=== PATIENT | male | born 1950 | race Caucasian/White ===

== ENCOUNTER 2016-10-29 10:45 | Inpatient (IN) | payer MEDICARE ==
[~2016-10-29] VITALS: Ht 177.8 cm; Wt 100.0 kg
[~2016-10-29 10:45] MED LIST: AZOR 5-40 MG TA1 TAB PO; BAYER CHEWABLE81 MG PO; BRILINTA90 MG PO; CELEXA20 MG PO; HYDROCODONE-APA1 TAB PO; PRILOSEC10 MG PO
[2016-10-29 11:40] VITALS: Ht 177.8 cm; Wt 100.0 kg
[2016-10-29] MEDS ORDERED: EDARBI40 MG PO (11:48)
[2016-10-30 08:00] VITALS: BP 151/71
[2016-10-30] MEDS ORDERED: LIPITOR20 MG PO ×2 (14:16→14:33)
[2016-10-30] MEDS ORDERED: PLAVIX75 MG PO ×2 (14:16→14:33)
== END 2016-10-30 15:46 | disposition home or self-care (01) | DRG 247 ==
LOC: D.M2 10:45
PROVIDERS: Internal Medicine Cardiovascular Disease; ADMIT Emergency Medicine
PROC: B2111ZZ Fluoroscopy of Multiple Coronary Arteries using Low Osmolar Contrast (ICD-10-PCS; 2016-10-30)
PROC: B2151ZZ Fluoroscopy of Left Heart using Low Osmolar Contrast (ICD-10-PCS; 2016-10-30)
PROC: 027135Z Dilation of Coronary Artery, Two Arteries with Two Drug-eluting Intraluminal Devices, Percutaneous Approach (ICD-10-PCS; principal; 2016-10-30 11:00)
PROC: 4A023N7 Measurement of Cardiac Sampling and Pressure, Left Heart, Percutaneous Approach (ICD-10-PCS; 2016-10-30 11:00)
DX: I25.10 Atherosclerotic heart disease of native coronary artery without angina pectoris (principal); T82.855A Stenosis of coronary artery stent, initial encounter; Y83.8 Other surgical procedures as the cause of abnormal reaction of the patient, or of later complication, without mention of misadventure at the time of the procedure; E11.9 Type 2 diabetes mellitus without complications; I10 Essential (primary) hypertension; F41.9 Anxiety disorder, unspecified; F32.9 Major depressive disorder, single episode, unspecified; Z72.0 Tobacco use

== ENCOUNTER → 2016-11-26 16:45 | Outpatient (CLI) | payer MEDICARE ==
[2016-10-29 11:40] VITALS: BMI 31.6
[~2016-11-26 16:45] MED LIST changes: +EDARBI40 MG PO; +LIPITOR20 MG PO; +PLAVIX75 MG PO
[2016-11-26 19:52] LABS: LDL-HDL RATIO 2.5 ratio (1.5-3.5)
== END | disposition home or self-care (01) ==
LOC: D.LABREF 16:45
PROVIDERS: Internal Medicine Cardiovascular Disease
DX: E78.5 Hyperlipidemia, unspecified (principal)

== ENCOUNTER 2017-01-30 01:58 | Emergency (ER) | payer MEDICARE ==
[2016-10-29 11:40] VITALS: BMI 31.6
== END 2017-01-30 03:15 | disposition home or self-care (01) ==
LOC: D.ER 01:58
DX: S20.212A Contusion of left front wall of thorax, initial encounter (principal); W01.0XXA Fall on same level from slipping, tripping and stumbling without subsequent striking against object, initial encounter; Y93.89 Activity, other specified; Y92.89 Other specified places as the place of occurrence of the external cause; S22.42XA Multiple fractures of ribs, left side, initial encounter for closed fracture; K21.9 Gastro-esophageal reflux disease without esophagitis; I10 Essential (primary) hypertension

== ENCOUNTER 2017-05-31 10:33 | Emergency (ER) | payer MEDICARE ==
[2016-10-29 11:40] VITALS: BMI 31.6
[2017-05-31 13:48] LABS: BASOPHILS 0.5 % (0-2); EOSINOPHILS 0.9 % (0-7); HEMATOCRIT 42.7 % (42.0-54.0); HEMOGLOBIN 14.1 g/dL (13.5-17.5); IMMATURE GRANULOCYTES 0.4 % (0-5); LYMPHOCYTES 14.8 % (15-50); MCH 29.4 pg (26.0-34.0); MCV 89.1 fL (80.0-100.0); MEAN PLATELET VOLUME 9.7 fL (7.4-10.4); MONOCYTES 7.5 % (2-11); NEUTROPHILS 75.9 % (40-80); RBC 4.79 10x6/uL (4.20-6.10); RDW 12.7 % (11.5-14.5); WBC 8.4 10x3/uL (4.8-10.8)
[2017-05-31 13:49] LABS: PLATELET COUNT 193 10x3/uL (130-400)
[2017-05-31 14:45] LABS: ALBUMIN 3.7 g/dL (3.4-5.0); ALKALINE PHOSPHATASE 60 U/L (46-116); ALT (SGPT) 22 U/L (10-68); CALC OSMOLALITY 274 mosm/kg (275-300); CALCIUM 8.7 mg/dL (8.5-10.1); CARBON DIOXIDE 24.7 mmol/L (21.0-32.0); CHLORIDE - SERUM 105 mmol/L (98-107); CREATININE - SERUM 0.9 mg/dL (0.6-1.3); GLUCOSE 92 mg/dL (74-106); POTASSIUM - SERUM 3.8 mmol/L (3.5-5.1); PROTEIN - SERUM 7.6 g/dL (6.4-8.2); SODIUM 138 mmol/L (136-145); UREA NITROGEN 10 mg/dL (7-18); eGFR NON AFRICAN AMERICAN 89 mL/min (90-120)
[2017-05-31 14:51] LABS: APPEARANCE CLEAR (CLEAR); COLOR YELLOW (YELLOW)
[2017-05-31 14:52] LABS: BILIRUBIN NEGATIVE (NEGATIVE); GLUCOSE NEGATIVE (NEGATIVE); KETONE NEGATIVE (NEGATIVE); NITRITE NEGATIVE (NEGATIVE); PROTEIN NEGATIVE (NEGATIVE); UROBILINOGEN NORMAL (NORMAL)
[2017-05-31 14:54] LABS: PRO BNP 147 pg/mL (0-125)
[2017-05-31 14:57] LABS: TROPONIN-I < 0.017 ng/mL (0.000-0.060)
== END 2017-05-31 15:30 | disposition home or self-care (01) ==
LOC: D.ER 10:33
PROVIDERS: Emergency Medicine
DX: I10 Essential (primary) hypertension (principal); K21.9 Gastro-esophageal reflux disease without esophagitis

== ENCOUNTER 2017-10-09 18:16 | Emergency (ER) | payer MEDICARE ==
[~2017-10-09] VITALS: Ht 177.8 cm; Wt 102.3 kg
[2017-10-09 18:40] VITALS: BP 215/96; Ht 177.8 cm; Wt 102.3 kg
== END 2017-10-09 19:37 | disposition left against medical advice (07) ==
LOC: D.ER 18:16
DX: I10 Essential (primary) hypertension (principal)

== ENCOUNTER 2018-09-02 00:40 | Emergency (ER) | payer MEDICARE ==
[~2018-09-02] VITALS: Ht 177.8 cm; Wt 106.8 kg
[2018-09-02 00:44] VITALS: Ht 177.8 cm; Wt 106.8 kg
[2018-09-02] MEDS ORDERED: TOPROL XL50 MG PO (00:46)
[2018-09-02 02:08] VITALS: BP 130/63
[2018-09-02] MEDS ORDERED: EDARBI40 MG PO (21:25)
[2018-09-03] MEDS ORDERED: HYDROCHLOROTHIA25 MG PO (14:07)
[2018-09-03] MEDS ORDERED: POTASSIUM CHLO10 ME1 PO (14:08)
== END 2018-09-02 02:08 | disposition home or self-care (01) ==
LOC: D.ER 00:40
DX: I10 Essential (primary) hypertension (principal)

== ENCOUNTER → 2018-09-02 06:56 | Outpatient (CLI) | payer MEDICARE ==
[2018-09-02 00:44] VITALS: BMI 33.7
[~2018-09-02 06:56] MED LIST changes: +HYDROCHLOROTHIA25 MG PO; +POTASSIUM CHLO10 ME1 PO; +TOPROL XL50 MG PO
== END | disposition home or self-care (01) ==
LOC: D.US 06:56 → D.HCCARDIO 09:00
PROVIDERS: ATTEND Internal Medicine Cardiovascular Disease
DX: R42 Dizziness and giddiness (principal)

== ENCOUNTER 2018-09-02 15:48 | Inpatient (IN) | payer MEDICARE ==
[~2018-09-02] VITALS: Ht 177.8 cm; Wt 109.1 kg
--- NOTE | ~2018-09-02 | DS ---
PATIENT:KEVIN GONZALEZ JR :46 MEDICAL RECORD: [id number] DISCHARGE SUMMARY ADMISSION DATE: 09/02/18 DISCHARGE DATE: 09/03/18 DATE OF ADMISSION: 09/02/2018 DATE OF DISCHARGE: 09/03/2018 IMPRESSION: 1. Acute coronary syndrome. 2. Hypertension. 3. Hyperlipidemia. BRIEF HISTORY AND HOSPITAL COURSE: Admitted with hypertension and recurrent angina, found to have restenotic right coronary, underwent a PCI of this vessel. He did well, was discharged home with addition of HCTZ and potassium supplementation to his medical regimen as per ____. See him back in the office for scheduled followup. TRANSINT:[id number] Voice Confirmation ID: [id number] DOCUMENT ID: [id number] JOELLE PINEDA MD CC: [id number] DICTATION DATE: 09/03/189 DIRECTOR OF CLINICAL SERVICES: 09/04/18 0250 DIS IN 09/03/18 [place] [id number] [place] [id number]
--- NOTE | ~2018-09-02 | OP ---
PATIENT NAME: KEVIN GONZALEZ JR MEDICAL RECORD: [id number] :46 LOCATION:D.M2 D.2115 ADMISSION DATE:09/02/18 SURGEON: JOELLE PINEDA MD DATE OF OPERATION: 09/03/2018 PROCEDURE: Left heart cath, selective coronary angiography plus PTCA of the restenotic stent, right femoral artery approach. CATHETERS: A 5-Cymro, 5/4 left and right Latia, 5/4 pig. The procedure was well tolerated. The patient was returned to the smith. Sheath removed. ExoSeal device was placed. FINDINGS: Left ventriculography in 30-degree SAMUEL normal wall motion and normal systolic function. CORONARY ANATOMY: LEFT MAIN: Left main is free of disease. LAD: Free of disease in the diagonal system. CIRCUMFLEX: Free of disease in the marginal system. RIGHT CORONARY ARTERY: The distal PDA after split of the PL and PD is totally occluded. Fills from left to right collaterals. The proximal stent placed has 80% restenosis and supplies a fairly large arch of PL branch. PLAN: PTCA of the restenotic stent. DESCRIPTION: A 5-Cymro sheath was exchanged for a 6-Cymro sheath. A hockey stick guide catheter provided good guide catheter support followed by a 300 cm Whisper wire was placed across the restenotic 80% stenosed stent down this portion of vessel. Stent was a 3.5 x 20 mm for oversizing purposes inflated up to 10 atmospheres for 45 seconds. Final angiography showed excellent resolution of 80% stenosis to no significant residual. GAURAV flow was 3 throughout the procedure. Sheath was closed with Exoseal device. Heparin was used during the case. IMPRESSION: Successful PTCA of the right coronary. We will add HCTZ as well as potassium supplementation to his medical regimen. May have residual angina from his totally occluded PD although this should improve blood pressure control, etc. TRANSINT:[id number] Voice Confirmation ID: [id number] DOCUMENT ID: [id number] JOELLE PINEDA MD CC: [id number] DICTATION DATE: 09/03/181107 LICENSED PHYSICAL THERAPIST ASSISTANT: 09/03/182117 DIS IN 09/03/18 [facility] [address] [place] [address]
--- NOTE | ~2018-09-02 | HEMODYNAMI ---
PATIENT:KEVIN GONZALEZ JR MEDICAL RECORD: [id number] : 46 LOCATION:[facility] D.2116 [facility]# [id number] ADMISSION DATE: 09/02/18 Generatedon:09/03/201811:07 Patient name: KEVIN GONZALEZ Patient #: [id number] SSN: : Date of study: 09/03/2018 Page: Of Hemodynamic Procedure Report Patient Data Patient Demographics Procedure consent was obtained First Name: KEVIN Gender: Male Last Name: CARLOS Suffix: Jr Ruiz Initial: Jessica : 1950 Patient #: [id number] Age: 67 year(s) Race: Additional ID: [id number] Contact details Address: [place] [address] State: [place] City: [place] Zip code: [address] Past Medical History Allergies Allergen Reaction Date Comments Reported Sulfa drugs 10/30/2016 Other allergy 10/30/2016 Reglan Other allergy 09/03/2018 Sulfa, Reglan Admission Admission Data Admission Date: 09/02/2018 Admission Time: 19:17 Arrival Date: 09/03/2018 Arrival Time: 0:00 Admit Source: Emergency Insurance Payor: Medicare department [facility] #: [id number] Room #: D.2116 Height (in.): 69.69 BSA: 2.25 (m2) Height (cm.): 177 BMI: 34.79 (kg/m2) Weight (lbs.): 240.31 Weight (kg.): 109 Medications upon Admission Medications Dosage Times Administered Last Remarks per Delivery Day Date and Time Beta Panfilo (any) Clopidogrel Current Diagnosis Diagnosis Description Unstable angina Lab Results Lab Result Date: 09/03/2018 Lab Result Time: 5:15 Biochemistry Name Units Result Min Max BUN mg/dl 9 --(*---)-- 7 18 Creatinine mg/dl 0.8 --(-*--)-- 0.6 1.3 CBC Name Units Result Min Max Hematocrit % 40.3 -*(----)-- 42 54 Hemoglobin g/dl 13.2 -*(----)-- 13.5 17.5 Procedure Procedure Types Cath Procedure Diagnostic Procedure [facility] w/Coronaries PCI Procedure PTCA PTCA Initial Procedure Description Procedure Date Procedure Date: 09/03/2018 Procedure Start Time: 10:44 Procedure End Time: 11:03 Procedure Staff Name Function Mathieu Lund RN Nurse Nader Davis MD Performing Physician Alexander Lam RT Scrub Vivi Schroeder RT Monitor Indication Chest heaviness and pressure Procedure Data Cath Procedure Fluoroscopy Diagnostic fluoroscopy Total fluoroscopy Time: 3.9 time: 3.9 min min Diagnostic fluoroscopy Total fluoroscopy dose: 500 dose: 500 mGy mGy Contrast Material Contrast Material Type Amount (ml) Isovue 300 89 Entry Location Entry Primary Successful Side Size Upsize Upsize Entry Closure Succes sful Closure Location (Fr) 1 (Fr) 2 (Fr) Remarks Device Remarks Femoral Right 5 Fr 6 Fr Exoseal artery Short Estimated blood loss: 10 ml Diagnostic catheters Device Type Used For End Catheter Placement MULTIPACK JL 4.0 5Fr Procedure catheter MULTIPACK 3DRC 5Fr Procedure catheter MULTIPACK Pigtail 5 Fr Procedure catheter Procedure Complications No complications Procedure Medications Medication Administration Route Dosage Oxygen etCO2 Nasal cannula 2 l/min Lidocaine 2% added to field 20 Heparin Flush Bag added to field 2 bags (1000units/500ml NS) 0.9% NaCl I.V. 100 ml/hr Versed I.V. 2 mg Fentanyl I.V. 100 mcg Versed I.V. 2 mg Fentanyl I.V. 100 mcg Heparin Bolus I.V. 4000 units Versed I.V. 2 mg Versed I.V. 2 mg Zofran I.V. 4 mg Plavix P.O. 75 mg Hemodynamics Rest BSA: 2.25 (m2) HGB: 13.2 (g/dl) O2 Consumption: Estimated: 298.75 (ml/min) O2 Co nsumption indexed: Estimated:132.78 (ml/min/m) Heart Rate: 115 (bpm) Pressure Samples Time Site Value (mmHg) Purpose Heart Use Rate(bpm) 10:49 LV 143/6,7 Snapshot 117 10:49 LV 137/7,9 Snapshot 117 Snapshots Pre Cath Intra NCS Post Cath Vital Signs Time Heart Resp SPO2 etCO2 NIBP (mmHg) Rhythm Pain Sedation Rate (ipm) (%) (mmHg) Status Level (bpm) 10:35:52 113 11 96 18.8 154/105(131) ST 0 (11) 10(A) , No pain 10:40:18 113 15 95 43 171/98(148) ST 0 (11) 10(A) , No pain 10:46:41 [address] 0 (11) 10(A) Exceeded , No pain 10:51:40 114 11 94 40.8 125/84(0) ST 0 (11) 10(A) , No pain 10:53:02 [address] 0 (11) 10(A) Exceeded , No pain 10:55:19 115 13 96 40.8 132/88(103) ST 0 (11) 10(A) , No pain 10:59:43 117 15 95 37.7 126/83(117) ST 0 (11) 10(A) , No pain 11:04:02 114 15 96 27.9 130/90(115) ST 0 (11) 10(A) , No pain Medications Time Medication Route Dose Verified Delivered Reason Notes Effectiveness by by 10:34:40 Oxygen etCO2 2 Nader Vinayakie used for Nasal l/min St Miguel Ángel Lund RN procedure cannula 10:34:48 Lidocaine 2% added 20ml Nader Nader for local to vial [facility] anesthetic field MD BISHOP 10:34:55 Heparin Flush added 2 Nader Nader used for Bag to bags [facility] procedure (1000units/500ml field MD BISHOP NS) 10:35:03 0.9% NaCl I.V. 100 Nader Murdokc Per physician ml/hr St Miguel Ángel Lund RN, MD 10:35:16 Zofran I.V. 4 mg Nader Buffie Per physician pt st ates [facility] Miguel Ángel Lund RN has been MD nauseated. 10:40:28 Versed I.V. 2 mg Nader Buffie for sedation St Miguel Ángel Lund RN, MD 10:40:35 Fentanyl I.V. 100 Nader Buffie for sedation mcg [facility] Miguel Ángel Lund RN, MD 10:45:46 Versed I.V. 2 mg Nader Buffie for sedation St Miguel Ángel Lund RN, MD 10:45:49 Fentanyl I.V. 100 Nader Vinayakie for sedation mcg [facility] Miguel Ángel Lund RN, MD 10:48:09 Versed I.V. 2 mg Nader Murdock for sedation St Miguel Ángel Lund RN, MD 10:51:02 Heparin Bolus I.V. 4000 Nader Murdock for verif ied units St Miguel Ángel Lund RN anticoagulation with dr MD loredo 10:56:34 Versed I.V. 2 mg Nader Murdock for sedation St Miguel Ángel Lund RN, MD 11:03:07 Plavix P.O. 75 mg [address] for St Miguel Ángel Lund RN antiplatelet therapy Procedure Log Time Note 9:59:27 Informed consent obtained and on chart 10:08:13 ACC Patient presents with Unstable Angina CCS Anginal Class 3--Marked limitation of physical activity, angina occurs with ordinary activity.. 10:08:33 ACCPatient has been prescribed/administered the following anti-anginal medication within the last 2 weeks: Beta Panfilo 10:08:56 Patient Weight : 240.31 lbs 10:08:59 Patient Height : 69.69 inches 10:09:17 Insurance Payor : Medicare 10:09:31 Admit Source: Emergency department 10:09:33 Arrival Date: 09/03/2018 12:00:00 AM 10:09:47 Current Diagnosis : Unstable angina 10:10:35 Lab Result : Hemoglobin 13.2 g/dl 10:10:35 Lab Result : Hematocrit 40.3 % 10:10:35 Lab Result : BUN 9 mg/dl 10:10:35 Lab Result : Creatinine 0.8 mg/dl 10:11:01 Indication : Chest heaviness and pressure 10:11:28 Diagnostic Cath Status : Urgent 10:11:39 Procedure Status Urgent Heart Cath (IP). 10:11:40 Mathieu Lund RN sent for patient. Start room use. 10:11:43 Time tracking: Call back (After hours or weekends) 10:11:46 Plan of Care:Hemodynamics will remain stable., Cardiac rhythm will remain stable., Comfort level will be maintained., Respiratory function will remain adequate., Patient/ family verbilizes understanding of procedure., Procedure tolerated without complication., Recovers from procedure without complications.. 10:11:56 H&P Date Dictated: 09/02/2018 Within 30 days and on chart.. 10:11:59 Lab results completed and on chart. 10:17:23 Patient received from Med II to [facility] 1 Alert and oriented. Tansferred to table in Supine position. 10:17:25 Warm blankets applied, and manav hugger turned on for patient comfort. 10:17:26 ECG and BP/O2 sat monitors applied to patient. 10::26 Correct patient and procedure confirmed by team. 10:17:35 Pre-procedure instructions explained to patient. 10:17:36 Pre-op teaching completed and patient verbalized understanding. 10:17:37 Family in waiting room. 10:17:40 Patient NPO since Breakfast. ::26 Vital chart was started 10:34:40 Oxygen 2 l/min etCO2 Nasal cannula was administered by Mathieu Lund RN; used for procedure; 10:34:48 Lidocaine 2% 20ml vial added to field was administered by Nader Davis MD; for local anesthetic; 10:34:55 Heparin Flush Bag (1000units/500ml NS) 2 bags added to field was administered by Nader Davis MD; used for procedure; 10:35:03 0.9% NaCl 100 ml/hr I.V. was administered by Mathieu Lund RN; Per physician; 10:35:16 Zofran 4 mg I.V. was administered by Mathieu Lund RN; Per physician; pt states has been nauseated. 10:35:31 Baseline sample Acquired. 10:35:36 Rhythm: sinus rhythm 10:35:39 Full Disclosure recording started 10:37:15 Patient allergic to Other allergySulfa, Reglan 10:37:29 Is the patient allergic to Iodine/contrast media? No. 10:37:57 Was the patient premedicated? Yes 10:38:04 Is patient on blood thinner?Yes 10:38:07 ACC The patient was administered the following blood thiners within the last 24 hours: ACCPlavix 10:38:12 Patient diabetic? No. 10:38:18 Snore? Yes 10:38:20 Sleep apnea? No 10:38:26 Dentures? Yes in tight 10:38:38 Pre procedure: right dorsailis pedis pulse 1+ Palpable, but thready & weak; easily obliterated 10:38:47 Patient pain scale 1/10 pressure. 10:38:58 IV patent on arrival in right forearm with 0.9% NaCl at [facility]. 10:39:47 Right groin area was prepped with chlora-prep and draped in sterile fashion 10:39:49 Alarms reviewed by R. N. 10:39:50 Sharps counted by scrub and verified by R.N. 10:39:54 Physician paged 10:39:55 Physician arrived 10:39:56 Final Timeout: patient, procedure, and site verified with staff and physician. All members of the team are in agreement. 10:39:56 --------ALL STOP TIME OUT------ 10:39:59 Right groin site verified by team. 10:40:08 Fire Safety Assessment: A--An alcohol-based skin anteseptic being used preoperatively., C--Open oxygen or nitrous oxide is being used., D--An ESU, laser, or fiber-optic light is being used. 10:40:28 Versed 2 mg I.V. was administered by Mathieu Lund RN; for sedation; 10:40:35 Physical assessment completed. ASA score P 3 - A patient with severe systemic disease as per Nader Davis MD. 10:40:35 Fentanyl 100 mcg I.V. was administered by Mathieu Lund RN; for sedation; 10:41:46 2) 60-89 Mildly reduced kidney function, and other findings (as for stage 1) point to kidney disease. 10:42:13 Maximum allowable contrast dose (3.7 X eGFR X 0.75)219 ml. 10:42:18 Sedation plan: IV Moderate Sedation Medication:Versed, Fentanyl 10:43:48 Use device set Femoral Dx 10:43:50 Bag Decanter () opened to sterile field. 10:43:50 ACIST Syringe (25506) opened to sterile field. 10:43:51 Medline Cath Pack ([id number]) opened to sterile field. 10:43:52 ACIST Manifold (46711) opened to sterile field. 10:43:52 ACIST Hand Control (49283) opened to sterile field. 10:43:54 DIAGNOSTIC Multipack 5Fr catheter set (OV4807) opened to sterile field. 10:43:57 SHEATH 5FR [place] (NXH083) opened to sterile field. 10:44:02 EMERALD Guide Wire (741-660) opened to sterile field. 10:44:05 Procedure started. 10:44:24 Local anesthetic to right femoral artery with Lidocaine 2% by Nader Davis MD.INITIAL ACCESS ONLY 10:44:34 A 5 Fr sheath was inserted into the Right Femoral artery 10:44:44 J wire advanced. 10:44:55 A MULTIPACK JL 4.0 5Fr catheter was advanced over the wire and used for Procedure. 10:44:57 LCA angiography performed. 10:45:46 Versed 2 mg I.V. was administered by Mathieu Lund RN; for sedation; 10:45:49 Fentanyl 100 mcg I.V. was administered by Mathieu Lund RN; for sedation; 10:47:22 Catheter removed. 10:47:29 A MULTIPACK 3DRC 5Fr catheter was advanced over the wire and used for Procedure. 10:48:09 Versed 2 mg I.V. was administered by Mathieu Lund RN; for sedation; 10:49:51 RCA angiography performed. 10:49:53 Catheter removed. 10:49:59 A MULTIPACK Pigtail 5 Fr catheter was advanced over the wire and used for Procedure. 10:50:13 EF : 55 % 10:50:16 Catheter removed. 10:50:49 Pre PCI Site: [place] pRCA has 80% stenosis. 10:51:02 Heparin Bolus 4000 units I.V. was administered by Mathieu Lund RN; for anticoagulation; verified with dr loredo 10:51:09 Sheath upsized to a 6 Fr Short. 10:51:37 GUIDE 6FR HS I catheter (LA6HSI) opened to sterile field. 10:52:04 INFLATOR Merit BasixCompak (NY3477) opened to sterile field. 10:52:42 WHISPER 300cm guide wire ([id number]) opened to sterile field. 10:52:43 SHEATH 6FR [place] (FFG020) opened to sterile field. 10:52:55 ACC Pre-intervention GAURAV Flow is 3. 10:53:06 6 Fr HS1 guide catheter was inserted over the wire 10:53:13 Whisper wire advanced. 10:54:25 Wire advanced across lesion. 10:56:00 ACT drawn and resulted at 267 seconds. (normal therapeutic range 180-240 seconds). 10:56:09 Inflate balloon Inflation number: 1 A EMERGE OTW 3.5 x 20 balloon ([id number]) was prepped and advanced across the Prox RCA 80, then inflated to 8 ALEXANDRO for 0:39 (min:sec) . 10:56:34 Versed 2 mg I.V. was administered by Mathieu Lund RN; for sedation; :57:17 EXOSEAL 6Fr (EX600) opened to sterile field. 10:57:25 Wire removed. 10:57:25 Balloon removed over the wire. 10:57:28 Guide catheter removed. 11:00:15 Sheath removed intact; hemostasis achieved with Exoseal to the Right Femoral artery. 11:00:17 Procedure ended.(Physican Out) 11:00:32 Fluoroscopy time 03.90 minutes. 11:00:36 Fluoroscopy dose: 500 mGy 11:00:36 Flurop Dose total: 500 11:00:54 Contrast amount:Isovue 300 89ml. 11:01:13 Dose Area Product 91828 mGy/cm. 11:01:18 Cumulative Air Kerma 500mGy. 11:01:26 Maximum allowable dose exceeded? No. 11::28 Sharps counted by scrub and verified by R.N. 11:01:32 Insertion/operative site no bleeding no hematoma. 11:01:38 Post right femoral artery:stable 11:01:42 Post Procedure Pulses reassessed and unchanged 11:01:46 Post procedure rhythm: unchanged. 11:01:49 Estimated blood loss: 10 ml 11:01:52 Post procedure instruction explained to patient.Patient verbalizes understanding. 11:02:48 Procedure type changed to Cath procedure, Diagnostic procedure, LHC, LHC w/Coronaries, PCI procedure, PTCA, PTCA Initial 11:03:07 Plavix 75 mg P.O. was administered by Mathieu Lund RN; for antiplatelet therapy; 11:03:31 Procedure and supply charges have been captured, reviewed, submitted and are correct. 11:03:36 Procedure Complication : No complications 11:03:38 Vital chart was stopped 11:03:39 See physician's report for complete and final results. 11:03:44 Patient transfered to [facility] with Bed. 11:03:47 Full Disclosure recording stopped 11:03:47 Procedure ended. 11:03:53 End room use (Document Last) Intervention Summary Intervention Notes Time ActionType Lesion and Equipment Action# Pressure Duration Attributes Used 10:56:09 Inflate Prox RCA EMERGE OTW 1 8 00:39 balloon 3.5 x 20 balloon ([id number]) Device Usage Item Name Manufacture Quantity Catalog Number Hospital Part Current Min imal Lot# / Charge Number Stock Stock Serial# Code ACIST Acist 1 95174 791776 559132 161932 20 Syringe Medical (10481) Systems Inc Bag Decanter Microtek 1 2001S 935957 33341 395933 5 () Medical Inc. Medline Cath Medline 1 [id number] 861536 60334 761476 5 Pack ([id number]) ACIST Hand Acist 1 96743 634519 546971 533910 5 Control Medical (69255) Systems Inc ACIST Acist 1 03594 908147 991608 097870 5 Manifold Medical (61371) Systems Inc DIAGNOSTIC Cardinal 1 OP1569 497925 81546 592630 30 Multipack Health 5Fr catheter set (LY1685) SHEATH 5FR Terumo 1 KCC682 551166 971391 602671 5 [place] (RHW903) EMERALD Cardinal 1 502-455 002478 329452 637255 5 Guide Wire [facility] (502455) MULTIPACK JL Cardinal 1 896143 5 4.0 5Fr Health catheter MULTIPACK Cardinal 1 992052 5 3DRC 5Fr Health catheter MULTIPACK Cardinal 1 708402 5 Pigtail 5 Fr Health catheter GUIDE 6FR HS Medtronic 1 LA6HSI 210086 99959 092360 1 I catheter (LA6HSI) INFLATOR [facility] 1 QL4439 313107 693394 745497 15 [facility] Medical BasixCompak (ES0569) WHISPER [place] 1 [id number] 522359 721527 422321 5 300cm guide Vascular wire ([id number]) SHEATH 6FR Terumo 1 TVX233 777816 045107 260372 40 [place] (XBT255) EMERGE OTW [place] 1 [id number] 737098 202768 694241 5 [id number] 3.5 x 20 Scientific balloon ([id number]) EXOSEAL 6Fr Cardinal 1 EX600 416408 038341 410110 10 (EX600) Health Signature Audit [place] Stage Time Signature Unsigned Intra-Procedure 09/03/2018 Alexander Lam 11:07:37 AM RT(R) Signatures Nurse : Mathieu Lund RN Signature : Date : Time : Performing Physician : Signature : Nader Ryan MD Date : Time : Monitor : Vivi Alexandre Signature : RT Date : Time : [address] [place] [address]
--- NOTE | ~2018-09-02 | HP ---
PATIENT: KEVIN GONZALEZ JR MEDICAL RECORD: [id number] ACCOUNT: [id number] LOCATION:[address] : 46 ADMISSION DATE: 09/02/18 PCP: ANTHONY ALLEN MD HISTORY AND PHYSICAL EXAMINATION HISTORY OF PRESENT ILLNESS: A 67-year-old gentleman with known history of coronary artery disease, status post intervention of the right. Had last intervention approximately 20 months ago, presents to the office with a progressive angina, underwent nuclear stress testing yesterday, which showed some changes inferiorly with mild reversibility, presented to the ER with rest symptomology yesterday, is being admitted for diagnostic angiography. PAST MEDICAL HISTORY: Includes: 1. History of hypertension. 2. Coronary artery disease as described above. 3. Dyslipidemia. ALLERGIES: SULFA, REGLAN. MEDICATIONS: Typically include Plavix 75 every day, Edarbi 80 every day, metoprolol 50 b.i.d., aspirin 81 every day, Celexa 20 every day. SOCIAL HISTORY: Nonsmoker, nondrinker. Easily takes care of all his ADLs. REVIEW OF SYSTEMS: The patient reports easy bruising but reports no swollen glands. The patient reports no fever, no night sweats, no significant weight gain, no significant weight loss. No significant exercise tolerance. The patient reports no dry eyes, no irritation, no vision change. Patient reports no difficulty hearing and no ear pain. Patient reports no frequent nose bleeds or nose and sinus problems. Patient reports on arm pain on exertion. No shortness of breath while lying down. No history of heart murmur. Patient reports no cough, no wheezing or coughing up blood. Patient reports no abdominal pain, no vomiting. Normal appetite. No diarrhea and not vomiting blood. No nausea and no constipation. Patient reports no incontinence. No difficulty urinating. No hematuria. No increased frequency. Patient reports no muscle aches. No weakness, no arthralgias, no back pain. No swelling of the extremities. Patient reports no abnormal mole, no jaundice, no rashes. Reports no loss of consciousness. No weakness and no numbness. No seizures, dizziness, or headaches. The patient reports no depression, no sleep disturbance, feeling safe in a relationship and no alcohol abuse. Patient reports on fatigue. Reports no runny nose or sinus pressure. No itching, no hives, and no frequent sneezing. PHYSICAL EXAMINATION: GENERAL: Pleasant gentleman, appears stated age, in no acute distress. VITAL SIGNS: Blood pressure 129/65, pulse 105. HEENT: Normocephalic, atraumatic. NECK: No bruits noted. HEART: Regular, II/ systolic ejection murmur. LUNGS: Fair air excursion. ABDOMEN: Soft, nontender. EXTREMITIES: Pulses 2+ with no edema. DIAGNOSTIC DATA: ECG shows minor nonspecific ST-T changes inferolaterally. HISTORY AND PHYSICAL [id number] KEVIN GONZALEZ JR IMPRESSION: Unstable angina/acute coronary syndrome with a known history of coronary artery disease, abnormal nuclear study, angiography, intervention based on the above. TRANSINT:[id number] Voice Confirmation ID: [id number] DOCUMENT ID: [id number] JOELLE PINEDA MD CC: [id number] DICTATION DATE: 09/03/18 1006 BUCKET OPERATOR: 09/03/18 1056 ADM IN [facility] [address] [place] [id number]
[~2018-09-02 15:48] MED LIST changes: -HYDROCHLOROTHIA25 MG PO; -POTASSIUM CHLO10 ME1 PO
[2018-09-02 16:38] LABS: BASOPHILS 0.3 % (0-2); EOSINOPHILS 0.3 % (0-7); HEMATOCRIT 38.9 % (42.0-54.0); HEMOGLOBIN 12.7 g/dL (13.5-17.5); IMMATURE GRANULOCYTES 0.2 % (0-5); LYMPHOCYTES 20.8 % (15-50); MCH 27.5 pg (26.0-34.0); MCHC 32.6 g/dL (31.0-37.0); MCV 84.4 fL (80.0-100.0); MEAN PLATELET VOLUME 9.5 fL (7.4-10.4); MONOCYTES 8.3 % (2-11); NEUTROPHILS 70.1 % (40-80); PLATELET COUNT 224 10x3/uL (130-400); RBC 4.61 10x6/uL (4.20-6.10); RDW 13.9 % (11.5-14.5); WBC 9.4 10x3/uL (4.8-10.8)
[2018-09-02 16:53] LABS: ALBUMIN 3.9 g/dL (3.4-5.0); ALKALINE PHOSPHATASE 72 U/L (46-116); ALT (SGPT) 23 U/L (10-68); BILIRUBIN - TOTAL 0.42 mg/dL (0.2-1.3); CALC OSMOLALITY 279 mosm/kg (275-300); CALCIUM 8.6 mg/dL (8.5-10.1); CARBON DIOXIDE 28.7 mmol/L (21.0-32.0); CHLORIDE - SERUM 104 mmol/L (98-107); GLUCOSE 95 mg/dL (74-106); POTASSIUM - SERUM 3.5 mmol/L (3.5-5.1); PROTEIN - SERUM 7.7 g/dL (6.4-8.2); SODIUM 141 mmol/L (136-145); UREA NITROGEN 10 mg/dL (7-18); eGFR NON AFRICAN AMERICAN 79 mL/min (90-120)
[2018-09-02 17:05] LABS: CKMB 1.8 U/L (0.0-3.6); CREATINE KINASE 137 UL (21-232); TROPONIN-I < 0.017 ng/mL (0.000-0.060)
[2018-09-02] MEDS ORDERED: EDARBI40 MG PO (21:25)
[2018-09-02 21:37] VITALS: BP 189/87; Ht 177.8 cm; Wt 109.1 kg
--- NOTE | 2018-09-02 21:49 | NUR ---
RECIEVED REPORT FROM ABRAHAN RN IN ER AT 1900. ARRIVED ON THE FLOOR VIA STRETCHER AT 1935. TRANSFERED SELF TO BED. B/P 189/. SCHEDULED HCTZ GIVEN. IV TO RIGHT FA WITH NS INFUSING AT 75CC/HR. NO REDNESS OR SWELLING TO SITE. DSG INTACT. TELEMETRY IN PLACE AND HR 75 SR. ALERT AND ORIENTED X4. UP AD KATLYN TO B/R. DENIES ANY NEEDS AT THIS TIME.
[2018-09-03] VITALS: BP 151/76
[2018-09-03 04:30] VITALS: BP 173/91
[2018-09-03 05:35] LABS: BASOPHILS 0.3 % (0-2); EOSINOPHILS 0.5 % (0-7); HEMATOCRIT 40.3 % (42.0-54.0); HEMOGLOBIN 13.2 g/dL (13.5-17.5); IMMATURE GRANULOCYTES 0.3 % (0-5); LYMPHOCYTES 18.9 % (15-50); MCH 27.4 pg (26.0-34.0); MCHC 32.8 g/dL (31.0-37.0); MCV 83.8 fL (80.0-100.0); MEAN PLATELET VOLUME 9.8 fL (7.4-10.4); MONOCYTES 11.2 % (2-11); NEUTROPHILS 68.8 % (40-80); PLATELET COUNT 222 10x3/uL (130-400); RBC 4.81 10x6/uL (4.20-6.10); RDW 13.6 % (11.5-14.5); WBC 9.4 10x3/uL (4.8-10.8)
[2018-09-03 06:05] LABS: CALC OSMOLALITY 277 mosm/kg (275-300); CALCIUM 8.6 mg/dL (8.5-10.1); CARBON DIOXIDE 26.4 mmol/L (21.0-32.0); CHLORIDE - SERUM 102 mmol/L (98-107); CREATININE - SERUM 0.8 mg/dL (0.6-1.3); GLUCOSE 94 mg/dL (74-106); POTASSIUM - SERUM 3.3 mmol/L (3.5-5.1); SODIUM 140 mmol/L (136-145); TROPONIN-I < 0.017 ng/mL (0.000-0.060); UREA NITROGEN 9 mg/dL (7-18); eGFR NON AFRICAN AMERICAN > 90 mL/min (90-120)
--- NOTE | 2018-09-03 07:15 | NUR ---
RECEIVED PT IN BED EYES CLOSED RESP UNLABORED SKIN W/D COLOR PALE NAD NOTED
[2018-09-03 08:10] VITALS: BP 129/65
--- NOTE | 2018-09-03 10:20 | NUR ---
PT TO VALUE ADVISOR VIA BED WITH CATH STAFF
[2018-09-03 10:46] LABS: UDS - AMPHET NEGATIVE QUAL (NEGATIVE); UDS - BARB NEGATIVE QUAL (NEGATIVE); UDS - BENZO NEGATIVE QUAL (NEGATIVE); UDS - COCAINE NEGATIVE QUAL (NEGATIVE); UDS - OPIATE NEGATIVE QUAL (NEGATIVE); UDS - PCP NEGATIVE QUAL (NEGATIVE); UDS - THC NEGATIVE QUAL (NEGATIVE)
[2018-09-03 10:51] LABS: APPEARANCE CLEAR (CLEAR); COLOR YELLOW (YELLOW); NITRITE NEGATIVE (NEGATIVE)
[2018-09-03 10:52] LABS: BILIRUBIN NEGATIVE (NEGATIVE); EPITHELIAL CELLS 0-5 /hpf (0-5); GLUCOSE NEGATIVE (NEGATIVE); KETONE LARGE mg/dL (NEGATIVE); PROTEIN 2+ mg/dL (NEGATIVE); UROBILINOGEN NORMAL (NORMAL); WHITE CELLS - URINE 0-5 /hpf (0-5)
--- NOTE | 2018-09-03 11:25 | NUR ---
RECEIVED PT BACK FROM TECHNICAL FELLOW VIA BED VSS AAOX4 RT GROIN DRSG C/D/I SITE FREE OF REDNESS OR EDEMA PPPX4 NO SIGNS OF BLEEDING NAD NOTED WILL CONTINUE TO MONITOR
[2018-09-03 12:15] VITALS: BP 103/69
[2018-09-03 12:30] VITALS: BP 122/76
[2018-09-03] MEDS ORDERED: HYDROCHLOROTHIA25 MG PO (14:07)
[2018-09-03] MEDS ORDERED: POTASSIUM CHLO10 ME1 PO (14:08)
[2018-09-03 15:24] VITALS: BP 126/71
--- NOTE | 2018-09-03 16:10 | NUR ---
REVIEWED DISCHARGE INSTRUCTIONS WITH PT STATES UNDERSTANDING COPY GIVEN DCD SALINE LOCK TO RFA WITH IV CATHETER INTACT SITE FREE OF REDNESS OR EDEMA PT DISCHARGED HOME IN STABLE CONDITION WITH ALL PERSONAL BELONGINGS LEFT UNIT VIA W/C
--- NOTE | 2018-09-05 09:55 | MORECARE ---
CASE MANAGEMENT DISCHARGE SUMMARY PATIENT: KEVIN GONZALEZ JR UNIT: [id number] ADM DATE: 09/02/18 AGE: 67 : 48 SEX: M ROOM/BED: D.2116 AUTHOR: STAN COX PHYSICIAN: REFERRING PHYSICIAN: JOELLE PINEDA MD DATE OF SERVICE: 09/05/18 Discharge Plan Patient Name: KEVIN GONZALEZ Facility: [facility]:[place] : 1950 Planned Disposition: Home Anticipated Discharge Date: 09/03/18 Discharge Date: 09/03/2018 Expected LOS: 1 Initial Reviewer: [email or web address] Initial Review Date: 09/05/2018 Generated: 09/05/18 10:54 am Patient Name: KEVIN GONZALEZ Page [id number] at 0955 All edits/amendments must be made on the electronic document DICTATION DATE: 09/05/18953 FLOOR WAXER: AUGUST 09/05/1854 RPT#: [id number] DC DATE:09/03/18 STATUS: DIS IN [address] [place] [address] END OF REPORT
== END 2018-09-03 16:10 | disposition home or self-care (01) | DRG 251 ==
LOC: D.ER 15:48 → D.M2 19:17
PROVIDERS: Family Medicine; ADMIT Internal Medicine Interventional Cardiology; ATTEND Internal Medicine Interventional Cardiology
PROC: B2111ZZ Fluoroscopy of Multiple Coronary Arteries using Low Osmolar Contrast (ICD-10-PCS; 2018-09-03)
PROC: B2151ZZ Fluoroscopy of Left Heart using Low Osmolar Contrast (ICD-10-PCS; 2018-09-03)
PROC: 02703ZZ Dilation of Coronary Artery, One Artery, Percutaneous Approach (ICD-10-PCS; principal; 2018-09-03 10:11)
PROC: 4A023N7 Measurement of Cardiac Sampling and Pressure, Left Heart, Percutaneous Approach (ICD-10-PCS; 2018-09-03 10:11)
DX: I25.110 Atherosclerotic heart disease of native coronary artery with unstable angina pectoris (principal); T82.855A Stenosis of coronary artery stent, initial encounter; I24.9 Acute ischemic heart disease, unspecified; I10 Essential (primary) hypertension; E78.5 Hyperlipidemia, unspecified; Y83.9 Surgical procedure, unspecified as the cause of abnormal reaction of the patient, or of later complication, without mention of misadventure at the time of the procedure; I25.10 Atherosclerotic heart disease of native coronary artery without angina pectoris

== ENCOUNTER 2019-02-20 20:06 | Emergency (ER) | payer MEDICARE ==
[~2019-02-20] VITALS: Ht 177.8 cm; Wt 118.2 kg
[~2019-02-20 20:06] MED LIST changes: +HYDROCHLOROTHIA25 MG PO; +POTASSIUM CHLO10 ME1 PO
[2019-02-20 20:11] VITALS: Ht 177.8 cm; Wt 118.2 kg
[2019-02-20 21:28] LABS: APPEARANCE CLEAR (CLEAR); BILIRUBIN NEGATIVE (NEGATIVE); COLOR YELLOW (YELLOW); GLUCOSE NEGATIVE (NEGATIVE); KETONE NEGATIVE (NEGATIVE); NITRITE NEGATIVE (NEGATIVE); PROTEIN NEGATIVE (NEGATIVE); UROBILINOGEN NORMAL (NORMAL)
[2019-02-20 21:44] LABS: UDS - AMPHET NEGATIVE QUAL (NEGATIVE); UDS - BARB NEGATIVE QUAL (NEGATIVE); UDS - BENZO POSITIVE QUAL (NEGATIVE); UDS - COCAINE NEGATIVE QUAL (NEGATIVE); UDS - OPIATE NEGATIVE QUAL (NEGATIVE); UDS - PCP NEGATIVE QUAL (NEGATIVE); UDS - THC NEGATIVE QUAL (NEGATIVE)
[2019-02-20 21:50] LABS: BASOPHILS 0.2 % (0-2); EOSINOPHILS 1.8 % (0-7); HEMATOCRIT 42.3 % (42.0-54.0); HEMOGLOBIN 13.9 g/dL (13.5-17.5); IMMATURE GRANULOCYTES 0.2 % (0-5); LYMPHOCYTES 14.3 % (15-50); MCH 28.5 pg (26.0-34.0); MCHC 32.9 g/dL (31.0-37.0); MCV 86.7 fL (80.0-100.0); MEAN PLATELET VOLUME 9.7 fL (7.4-10.4); MONOCYTES 7.6 % (2-11); NEUTROPHILS 75.9 % (40-80); PLATELET COUNT 238 10x3/uL (130-400); RBC 4.88 10x6/uL (4.20-6.10); WBC 12.7 10x3/uL (4.8-10.8)
[2019-02-20 22:01] LABS: APTT 34.3 SECONDS (22.8-39.4)
--- NOTE | 2019-02-20 22:01 | NUR ---
DR. BIANCHI NOTIFIED AND REVIEWED PT'S BEHAVIOR AND ASSESSMENT RESULTS. PT IS A LOW RISK PER DR. BIANCHI. DR. BIANCHI STATED TO GIVE RESOURCES TO PT AT TIME OF DISCHARGE. NO FURTHER ORDERS AT THIS TIME. RESOURCES REVIEWED WITH PT AND HE VERBALIZED UNDERSTANDING.
[2019-02-20 22:06] LABS: CALC OSMOLALITY 282 mosm/kg (275-300); CALCIUM 8.9 mg/dL (8.5-10.1); CARBON DIOXIDE 22.9 mmol/L (21.0-32.0); CHLORIDE - SERUM 106 mmol/L (98-107); GLUCOSE 105 mg/dL (74-106); POTASSIUM - SERUM 3.6 mmol/L (3.5-5.1); SODIUM 142 mmol/L (136-145); UREA NITROGEN 13 mg/dL (7-18); eGFR NON AFRICAN AMERICAN 78 mL/min (90-120)
[2019-02-20 22:18] LABS: INR 1.11 (0.85-1.17); PROTIME 14.2 SECONDS (11.6-15.0)
[2019-02-20 22:25] LABS: ALBUMIN 3.7 g/dL (3.4-5.0); ALKALINE PHOSPHATASE 74 U/L (46-116); ALT (SGPT) 34 U/L (10-68); BILIRUBIN - TOTAL 0.51 mg/dL (0.2-1.3); CREATINE KINASE 96 UL (21-232); MAGNESIUM - SERUM 2.1 mg/dL (1.8-2.4)
[2019-02-20 22:27] LABS: TROPONIN-I < 0.017 ng/mL (0.000-0.060)
[2019-02-20 23:00] VITALS: BP 158/85
== END 2019-02-20 23:00 | disposition home or self-care (01) ==
LOC: D.ER 20:06
PROVIDERS: Family Medicine
DX: T42.4X1A Poisoning by benzodiazepines, accidental (unintentional), initial encounter (principal); D72.829 Elevated white blood cell count, unspecified; I10 Essential (primary) hypertension

== ENCOUNTER 2019-04-25 12:58 | Inpatient (IN) | payer MEDICARE ==
[~2019-04-25] VITALS: Ht 177.8 cm; Wt 108.6 kg
[2019-04-25] MEDS ORDERED: NORVASC10 MG PO (13:22)
[2019-04-25 13:41] LABS: BASOPHILS 0.3 % (0-2); EOSINOPHILS 1.7 % (0-7); HEMATOCRIT 35.3 % (42.0-54.0); HEMOGLOBIN 10.9 g/dL (13.5-17.5); IMMATURE GRANULOCYTES 0.2 % (0-5); LYMPHOCYTES 9.3 % (15-50); MCH 28.7 pg (26.0-34.0); MCHC 30.9 g/dL (31.0-37.0); MCV 92.9 fL (80.0-100.0); MEAN PLATELET VOLUME 8.9 fL (7.4-10.4); MONOCYTES 8.3 % (2-11); NEUTROPHILS 80.2 % (40-80); PLATELET COUNT 272 10x3/uL (130-400); RDW 15.2 % (11.5-14.5); WBC 17.8 10x3/uL (4.8-10.8)
[2019-04-25 13:53] LABS: CALC OSMOLALITY 280 mosm/kg (275-300); CALCIUM 8.3 mg/dL (8.5-10.1); CARBON DIOXIDE 25.6 mmol/L (21.0-32.0); CHLORIDE - SERUM 103 mmol/L (98-107); CREATININE - SERUM 2.2 mg/dL (0.6-1.3); GLUCOSE 104 mg/dL (74-106); POTASSIUM - SERUM 3.8 mmol/L (3.5-5.1); SODIUM 139 mmol/L (136-145); UREA NITROGEN 20 mg/dL (7-18); eGFR NON AFRICAN AMERICAN 32 mL/min (90-120)
[2019-04-25 13:56] LABS: APTT 36.6 SECONDS (22.8-39.4); INR 1.1 (0.85-1.17); PROTIME 14.1 SECONDS (11.6-15.0)
[2019-04-25 14:04] VITALS: BP 99/38
[2019-04-25 14:10] LABS: ALBUMIN 3.6 g/dL (3.4-5.0); ALKALINE PHOSPHATASE 62 U/L (30-120); ALT (SGPT) 24 U/L (10-68); BILIRUBIN - TOTAL 0.46 mg/dL (0.2-1.3); CKMB 1.8 U/L (0.0-3.6); CREATINE KINASE 201 UL (21-232); PROTEIN - SERUM 7.3 g/dL (6.4-8.2); TROPONIN-I < 0.017 ng/mL (0.000-0.060)
[2019-04-25 14:36] LABS: BILIRUBIN NEGATIVE (NEGATIVE); GLUCOSE NEGATIVE (NEGATIVE); KETONE NEGATIVE (NEGATIVE); NITRITE NEGATIVE (NEGATIVE); SPECIFIC GRAVITY 1.025 (1.005-1.020)
[2019-04-25 14:40] LABS: EPITHELIAL CELLS 0-5 /hpf (0-5); RED CELLS - URINE RARE /hpf (0-5); WHITE CELLS - URINE OCC /hpf (NEGATIVE)
[2019-04-25 14:41] LABS: AMORPHOUS SEDIMENT <1+ /lpf (NONE SEEN); BACTERIA FEW /hpf (NEGATIVE); CALCIUM OXALATE CRYSTALS OCC /hpf (NONE SEEN)
[2019-04-25 15:05] VITALS: BP 97/47
[2019-04-25 16:04] VITALS: BP 104/53
--- NOTE | 2019-04-25 16:27 | NUR ---
CALLED TO GIVE REPORT. NURSE UNAVAILABLE AT THIS TIME.
[2019-04-25 16:43] VITALS: BP 116/61
--- NOTE | 2019-04-25 16:48 | NUR ---
REPORT TO CHACORTA RAYMUNDO. STATES ROOM IS CLEAN BUT FLOOR IS STILL WET.
--- NOTE | 2019-04-25 17:15 | NUR ---
ARRIVE TO ROOM VIA STRETCHER. AMBULATES TO BED WITH MINIMAL ASSIST DUE TO FREQUENT FALLS AT HOME. LT EYE BRUISED FROM FALL AT HOME. IV BOLUS INFUSING ORDERED THROUGH RT FA IV. BROWNLEE PLACEMENT IN ER. BROWNLEE DRAINING BY GRAVITY. ALERT AND ORIENTED X4. SCDs ON. DENIES ANY NEEDS. CONTINUE ADMISSION PROCESS AND SAFETY PRECAUTIONS.
[2019-04-25 17:43] VITALS: BP 121/9; Ht 177.8 cm; Wt 108.6 kg
--- NOTE | 2019-04-25 19:15 | NUR ---
EVENING ROUNDS COMPLETE. PT LAYING IN BED. NO SIGNS OF DISTRESS. PT REQUEST FOR PAIN MEDICATION, EXPLAINED TO PT THAT IT IS NOT DUE AT THIS TIME. PT VOICED UNDERSTANDING. PT DENIES ANY OTHER NEEDS AT THIS TIME. CL IN REACH, BED IN LOWEST POSITION.
[2019-04-25 22:08] VITALS: BP 125/55
--- NOTE | 2019-04-25 23:36 | NUR ---
RECEIVED PATIENT FROM 2129 TO 2108. REPORT RECEIVED FROM NURSE CHRISTIN. PATIENT IMMEDIATELY MADE ME AWARE THAT HE WOULD LIKE HIS "PAIN SHOT" EVERY 4 HRS AND THAT HE LAST HAD IT A 2199. INFORMED PATIENT THAT HE NEEDS TO PRESS HIS CL WHEN HE'S READY FOR PRN MEDS AND THAT I WOULD TRY TO GET THEM TO HIM REQUESTED ABOVE. EMPTIED 1900CC FROM PATIENT BROWNLEE. CL IN REACH, BED LOCKED AND LOWERED. WILL CTM.
[2019-04-26 00:16] VITALS: BP 113/54
[2019-04-26 05:15] VITALS: BP 127/64
[2019-04-26 05:29] LABS: BASOPHILS 0.7 % (0-2); EOSINOPHILS 3.6 % (0-7); HEMATOCRIT 31.4 % (42.0-54.0); HEMOGLOBIN 9.7 g/dL (13.5-17.5); IMMATURE GRANULOCYTES 0.1 % (0-5); LYMPHOCYTES 24.2 % (15-50); MCH 28.5 pg (26.0-34.0); MCHC 30.9 g/dL (31.0-37.0); MCV 92.4 fL (80.0-100.0); MEAN PLATELET VOLUME 9.3 fL (7.4-10.4); MONOCYTES 8.4 % (2-11); RDW 15.2 % (11.5-14.5)
[2019-04-26 05:37] LABS: PLATELET COUNT 186 10x3/uL (130-400); WBC 7.5 10x3/uL (4.8-10.8)
[2019-04-26 05:47] LABS: % SATURATION 9 % (15-55); IRON 31 ug/dl (35-150); TOTAL IRON BIND CAPACITY 343 ug/dl (260-445); UNSAT IRON BIND CAPACITY 312 ug/dl (150-375)
[2019-04-26 06:05] LABS: ALBUMIN 2.9 g/dL (3.4-5.0); ANION GAP 9.4 mmol/L (8-16); BILIRUBIN - TOTAL 0.41 mg/dL (0.2-1.3); CARBON DIOXIDE 27.2 mmol/L (21.0-32.0); POTASSIUM - SERUM 3.6 mmol/L (3.5-5.1); PROTEIN - SERUM 6.1 g/dL (6.4-8.2)
[2019-04-26 06:07] LABS: CREATININE - SERUM 1.1 mg/dL (0.6-1.3)
--- NOTE | 2019-04-26 06:24 | NUR ---
I have reviewed this patient and I concur with the Shift Assessment completed by the Licensed Practical Nurse today this shift.
[2019-04-26 07:59] VITALS: BP 116/57
--- NOTE | 2019-04-26 08:00 | NUR ---
AM ROUNDS COMPLETED. INTRODUCED MYSELF TO PT PRIMARY RN FOR TODAYS SHIFT. PT IS A&O SITTING UP IN BED RESTING QUIETLY. PT STATES HE IS FEELING MUCH BETTER TODAY FROM WHEN HE FIRST CAME IN. SHIFT ASSESSMENT COMPLETED. PT HAS BROWNLEE CATHETER DRAINING TO GRAVITY OFF R.SIDE OF BED. PT HAS A L.BLACK EYE FROM HIS PREVIOUS FALL AND GENERALIZED BRUISING BUT ALL SKIN INTACT. RR NONLABORED ON RA. LUNGS CTA THROUGHOUT ALL LOBES. PT DENIES ANY IMMEDIATE NEEDS AT THIS TIME. WILL REVIEW CHART AND ORDERS AND CPOC.
[2019-04-26 11:42] VITALS: BP 134/66
--- NOTE | 2019-04-26 15:00 | NUR ---
WRAPPED PTS PIV FOR PT TO TAKE A SHOWER. ALL SHOWER SUPPLIES GATHERED. KAI MARTIN AT BEDSIDE TO ASSIST IF NEEDED AND MONITER FOR FALL RISK. NO FURTHER NEEDS. WILL CPOC.
[2019-04-26 15:38] VITALS: BP 139/70; BP 145/76; BP 164/73
--- NOTE | 2019-04-26 16:59 | NUR ---
PTS R.FA PIV WAS PULLED OUT BY ACCIDENT. D/C WITH CATHETER TIP FULLY INTACT. PT IS STILL EATING DINNER. WILL RESITE SHORTLY. NO IMMEDIATE NEEDS AT THIS TIME. CL IN REACH. WILL CTM.
--- NOTE | 2019-04-26 17:26 | NUR ---
VERBAL ORDER PER PRIMARY TEAM TO D/C PTS BROWNLEE CATHETER. D/C WITH CATH TIP FULLY INTACT. INSTRUCTED PT ON STRICT I&O'S AND PROVIDED HIM WITH A URINAL. PT VERBALIZED UNDERSTANDING. PT SITTING UP IN BED EATING DINNER. PT VOICED THANKS AND DENIES ANY CURRENT NEEDS. WILL CTM.
--- NOTE | 2019-04-26 19:20 | NUR ---
REPORT RECEIVED, WILL CONTINUE POC. PATIENT IS AAOX4, LYING IN SEMI-FOWLERS POSITION. NO S/S OF DISTRESS OBSERVED, RR EVEN AND UNLABORED ON ROOM AIR. NEEDS PIV ACCESS TO CONTINUE IRON. EMPTIED 225CC OF CLEAR LIGHT YELLOW URINE FROM URINAL. PATIENT DENIES NEEDS AT THIS TIME. CL IN REACH, BED LOCKED AND LOWERED. WILL CTM.
[2019-04-26 20:18] VITALS: BP 148/67
--- NOTE | 2019-04-26 20:29 | NUR ---
NEW PIV STARTED TO LT WRIST WITH 2OG X3 ATTEMPTS, GOOD BLOOD RETURN, FLUSHED WITH EASE. PATIENT TOLERATED WELL. PT REQUESTED PAIN MEDS FOR HIP PAIN. PRN MORPHINE ADMINISTERED PER ORDERS. IV IRON RESTARTED. PATIENT DENIES FURTHER NEEDS AT THIS TIME. RT AT BEDSIDE.
[2019-04-27 00:20] VITALS: BP 167/81
[2019-04-27 04:20] VITALS: BP 130/61
[2019-04-27 04:32] VITALS: BP 130/61
[2019-04-27 04:54] LABS: BASOPHILS 0.3 % (0-2); EOSINOPHILS 2.5 % (0-7); HEMATOCRIT 32.8 % (42.0-54.0); HEMOGLOBIN 10.1 g/dL (13.5-17.5); IMMATURE GRANULOCYTES 0.1 % (0-5); LYMPHOCYTES 18.4 % (15-50); MCH 28.3 pg (26.0-34.0); MCHC 30.8 g/dL (31.0-37.0); MCV 91.9 fL (80.0-100.0); MEAN PLATELET VOLUME 8.7 fL (7.4-10.4); MONOCYTES 10.3 % (2-11); NEUTROPHILS 68.4 % (40-80); PLATELET COUNT 189 10x3/uL (130-400); RBC 3.57 10x6/uL (4.20-6.10); RDW 14.9 % (11.5-14.5); WBC 7.6 10x3/uL (4.8-10.8)
[2019-04-27 05:15] LABS: ALBUMIN 3.2 g/dL (3.4-5.0); ALKALINE PHOSPHATASE 55 U/L (30-120); ALT (SGPT) 21 U/L (10-68); BILIRUBIN - TOTAL 0.33 mg/dL (0.2-1.3); CALC OSMOLALITY 277 mosm/kg (275-300); CALCIUM 8.4 mg/dL (8.5-10.1); CARBON DIOXIDE 29.3 mmol/L (21.0-32.0); CHLORIDE - SERUM 105 mmol/L (98-107); CREATININE - SERUM 0.9 mg/dL (0.6-1.3); GLUCOSE 102 mg/dL (74-106); POTASSIUM - SERUM 3.7 mmol/L (3.5-5.1); PROTEIN - SERUM 6.8 g/dL (6.4-8.2); SODIUM 140 mmol/L (136-145); UREA NITROGEN 10 mg/dL (7-18); eGFR NON AFRICAN AMERICAN 89 mL/min (90-120)
--- NOTE | 2019-04-27 07:18 | NUR ---
RECIEVED REPORT. PATIENT IS ALERT AND ORIENTED. DENIES ANY NEEDS AT THIS TIME.
[2019-04-27 09:44] VITALS: BP 152/80
[2019-04-27 13:47] VITALS: BP 139/69
--- NOTE | 2019-04-27 13:50 | NUR ---
PATIENT IS REQUESTING TO GO HOME. SPOKE WITH JUANY AND SHE AGREED. PATIENT SHOULD BE GOING HOME TODAY.
--- NOTE | 2019-04-27 14:33 | NUR ---
PATIENT IS VERY EXCITED TO BE DISCHARGED. DISCHARGE PAPERWORK IS IN PROCESS.
--- NOTE | 2019-04-27 14:37 | NUR ---
UPON ADMIT THERE IS NO FLU SHOT, WHEN QUESTIONED UPON DISCHARGE, HE REFUSED AND SAID HE WOULD GET WITH DR ALLEN.
--- NOTE | 2019-04-27 15:10 | NUR ---
DISCHARGE TEACHING COMPLETE AND PAPERS SIGNED. IV REMOVED WITH CATHETER INTACT. ALL PATIENT BELONGINGS REMOVED FROM THE ROOM AND WENT HOME WITH THE PATIENT. PATIENT WENT DOWNSTAIRS BY WHEELCHAIR AND WENT HOME WITH FAMILY.
--- NOTE | 2019-04-27 15:10 | MORECARE ---
CASE MANAGEMENT DISCHARGE SUMMARY PATIENT: KEVIN GONZALEZ JR UNIT: [id number] ADM DATE: 04/25/19 AGE: 68 : 48 SEX: M ROOM/BED: D.2109 AUTHOR: STAN COX PHYSICIAN: REFERRING PHYSICIAN: REFUGIO CHOUDHARY MD DATE OF SERVICE: 04/27/19 Discharge Plan Patient Name: KEVIN GONZALEZ Facility: [facility]:[place] : 1950 Planned Disposition: Home Anticipated Discharge Date: 04/27/19 Discharge Date: Expected LOS: 2 Initial Reviewer: [email or web address] Initial Review Date: 04/27/2019 Generated: 04/27/19 4:09 pm DCPIA - Discharge Planning Initial Assessment Updated by [email or web address]: Bebo Jones on 04/27/19 3:09 pm * Is the patient Alert and Oriented? Yes * How many steps to enter\exit or inside your home? NONE * PCP DR. ALLEN * Pharmacy [facility] * Preadmission Environment Home with Family * ADLs Independent * Equipment Cane * Other Equipment NO MEDICAL EQUIPMENT PROVIDER PREFERENCE * List name and contact numbers for known caregivers / representatives who currently or will assist patient after discharge: ETHAN MARMOLEJO, DTR, * Verbal permission to speak to the caregivers and representatives has been obtained from the patient. N/A * Community resources currently utilized None * Please name any agencies selected above. NONE * Additional services required to return to the preadmission environment? No * Can the patient safely return to the preadmission environment? Yes * Has this patient been hospitalized within the prior 30 days at any hospital? No Patient Name: KEVIN GONZALEZ Page 64778 at 1510 All edits/amendments must be made on the electronic document DICTATION DATE: 04/27/19 150 LIGHTING DESIGNER: AUGUST 04/27/19 1509 RPT#: [id number] DC DATE: STATUS: ADM IN [facility] [address] [place] [address] END OF REPORT
--- NOTE | 2019-04-27 15:17 | MORECARE ---
CASE MANAGEMENT DISCHARGE SUMMARY PATIENT: KEVIN OGNZALEZ UNIT: [id number] ADM DATE: 04/25/19 AGE: 68 : 48 SEX: M ROOM/BED: D.2101 AUTHOR: BROOKE,DOC PHYSICIAN: REFERRING PHYSICIAN: REFUGIO CHOUDHARY MD DATE OF SERVICE: 04/27/19 Discharge Plan Patient Name: KEVIN GONZALEZ Facility: [facility]:[place] : 1950 Planned Disposition: Home Anticipated Discharge Date: 04/27/19 Discharge Date: 04/27/2019 Expected LOS: 2 Initial Reviewer: [email or web address] Initial Review Date: 04/27/2019 Generated: 04/27/19 4:16 pm Comments DCP- Discharge Planning Updated by [email or web address]: Bebo Jones on 04/27/19 2:[address] Patient Name: KEVIN GONZALEZ Admission Status: ER Accout number: [id number] Admission Date: 04-25-2019 : 1950 Admission Diagnosis: Attending: REFUGIO CHOUDHARY Current LOS: 2 Anticipated DC Date: 04-27-2019 Planned Disposition: Home Primary Insurance: MEDICARE A & B Discharge Planning Comments: CM MET WITH PT IN ROOM TO DISCUSS DISCHARGE PLANNING AND NEEDS. PT REPORTS LIVING AT HOME INDEPENDENTLY IN ROOM HE RENTS FROM [facility]. PT HAS CANE AND NO MEDICAL EQUIPMENT PROVIDER PREFERENCE. PT HAS NO OUTSIDE SERVICES ASSISTING IN THE HOME. CM DISCUSSED AVAILABILITY OF HOME HEALTH, REHAB SERVICES AND MEDICAL EQUIPMENT. PT DENIES DISCHARGE NEEDS, REPORTS HIS DAUGHTER WILL PICK HIM UP TODAY FOR DISCHARGE HOME. HOSPICE SPIRITUAL CARE COORDINATOR NURSE NOTIFIED. Tonal Regulator: Bebo Jones DCPIA - Discharge Planning Initial Assessment Updated by [email or web address]: Bebo Jones on 04/27/19 3:09 pm * Is the patient Alert and Oriented? Yes * How many steps to enter\exit or inside your home? NONE * PCP DR. ALLEN * Pharmacy [facility] * Preadmission Environment Home with Family * ADLs Independent * Equipment Cane * Other Equipment NO MEDICAL EQUIPMENT PROVIDER PREFERENCE * List name and contact numbers for known caregivers / representatives who currently or will assist patient after discharge: ETHAN MARMOLEJO, ZAIDA, * Verbal permission to speak to the caregivers and representatives has been obtained from the patient. N/A * Community resources currently utilized None * Please name any agencies selected above. NONE * Additional services required to return to the preadmission environment? No * Can the patient safely return to the preadmission environment? Yes * Has this patient been hospitalized within the prior 30 days at any hospital? No Last DP export: 04/27/19 2:10 p Patient Name: KEVIN GONZALEZ Page 19804 at 1517 All edits/amendments must be made on the electronic document DICTATION DATE: 04/27/191515 DESKTOP SPECIALIST: AUGUST 04/27/191515 RPT#: [id number] DC DATE:04/27/19 STATUS: DIS IN [facility] [address] [place] [address] END OF REPORT
--- NOTE | 2019-05-01 12:16 | EC ---
PATIENT:KEVIN GONZALEZ DATE OF SERVICE: 04/25/19 SEX: M MEDICAL RECORD: [id number] DATE OF : [birth year] LOCATION:D.M2 D.210 AGE OF PATIENT: 68 ADMISSION DATE: 04/25/19 REFERRING PHYSICIAN: INTERPRETING PHYSICIAN: JOELLE PINEDA MD ECHOCARDIOGRAM REPORT ECHO CHARGES 4 ECHO COMPLETE Date: 04/27/19 CLINICAL DIAGNOSIS: SYNCOPE ECHOCARDIOGRAPHIC MEASUREMENTS (adult normal given) AC root (d.<3.7cm) 4.3 cm LV Septum d (<1.2 cm> 1.3 cm Valve Excursion 2.0 cm LV Septum (systole) 1.5 cm Left Atria (s.<4.0cm> 3.9 cm LVPW d(<1.2cm) 1.4 cm RV (d.<2.3cm) 3.9 cm LVPW (sytole) 2.0 cm LV diastole(<5.6CM) 4.5 cm MV E-F(>70mm/sec) cm LV systole 3.2 cm LVOT Diameter 1.9 cm MV exc.(>10mm) cm Est.ejection fraction (50-75%) % DOPPLER: LVIT cm/sec A 830 cm/sec E 69.0 cm/sec LA cm/sec RVSP 20 mmHg LVOT 107 cm/sec AOP1/2T m/s Asc. Ao 121 cm/sec RVOT 96 cm/sec RA cm/sec PA 103 cm/sec AV Gradient Peak 5.90 mmHg AV Mean 3.12 mmHg AV Area 2.4 cm MV Gradient Peak 3.11 mmHg MV Mean 1.66 mmHg MV Area cm COMMENTS: Manager Cafe: 2 EMERY SANTORO Customs Inspector: 3 Dr. Gonzáles TAPE# PACS Pericardial Effusion N DATE OF SERVICE: Adequate 2D, color flow imaging, spectral Doppler, and M-Mode LVH is present. LV internal dimensions are normal. Wall motion is normal. EF is greater than or equal to 55%. Aortic valve is tricuspid. No evidence of stenosis by Doppler interrogation. Left atrium is normal at 3.9 cm. Mitral valve shows no prolapse. Trace MR. Right-sided chambers are grossly normal. Trace TR. ECHOCARDIOGRAM REPORT [id number] CARLOSKEVIN JR TRANSINT:[id number] Voice Confirmation ID: [id number] DOCUMENT ID: [id number] JOELLE PINEDA MD at 1216 CC: [id number] DICTATION DATE: 04/29/19 1031 GARBAGE DEPOT WORKER: 04/29/19 1358 DIS IN 04/27/19 [place] [id number] [place] [id number]
== END 2019-04-27 15:12 | disposition home or self-care (01) | DRG 315 ==
LOC: D.ER 12:58 → D.M2 15:41
PROVIDERS: Family Medicine; ADMIT Emergency Medicine; ATTEND Emergency Medicine
DX: I95.9 Hypotension, unspecified (principal); N17.9 Acute kidney failure, unspecified; N39.0 Urinary tract infection, site not specified; R00.0 Tachycardia, unspecified; I25.10 Atherosclerotic heart disease of native coronary artery without angina pectoris; D64.9 Anemia, unspecified; R20.2 Paresthesia of skin; K21.9 Gastro-esophageal reflux disease without esophagitis; I10 Essential (primary) hypertension; F41.8 Other specified anxiety disorders; E66.9 Obesity, unspecified; R55 Syncope and collapse; Z68.33 Body mass index [BMI] 33.0-33.9, adult

== ENCOUNTER 2020-08-09 04:11 | Emergency (ER) | payer MEDICARE ==
[~2020-08-09] VITALS: Ht 177.8 cm; Wt 88.6 kg
[~2020-08-09 04:11] MED LIST changes: +NORVASC10 MG PO
[2020-08-09 04:15] VITALS: BP 141/87; Ht 177.8 cm; Wt 88.6 kg
[2020-08-09] MEDS ORDERED: TYLENOL W/CODEI1 TAB PO (04:59)
== END 2020-08-09 05:01 | disposition home or self-care (01) ==
LOC: D.ER 04:11
DX: S20.212A Contusion of left front wall of thorax, initial encounter (principal); W19.XXXA Unspecified fall, initial encounter; Y93.9 Activity, unspecified; Y92.9 Unspecified place or not applicable; I10 Essential (primary) hypertension; K21.9 Gastro-esophageal reflux disease without esophagitis